=== PATIENT | male | born 1945 | race Caucasian/White ===

== ENCOUNTER 2023-03-12 12:47 | Day surgery (SDC) | payer MEDICARE ==
[~2023-03-12] VITALS: Ht 177.8 cm; Wt 83.3 kg
[~2023-03-12 12:47] MED LIST: ASPI81TA86 PO; ATOR80TA59 PO; CALC600T31 PO; CALC600T60 PO; ECOT81TA5 PO; ELIQ5TAB PO; GLUCTAB7 PO; LIPI80TA PO; NS 1,000 ML IV ONE; OMEP40CA5 PO; PERC5TAB12 PO; TYLE325T5 PO
[2023-03-12] MEDS ORDERED: LIDOCAINE 2% 100MG/5ML SDV (FOR ANES.) As Ordered ONE (14:15)
[2023-03-12] MEDS ORDERED: propofoL 200 MG/20 ML VIAL As Ordered ONE (14:15)
[2023-03-12 15:37] VITALS: BP 125/65; O2SAT 98
== END 2023-03-12 16:01 | disposition home or self-care (01) ==
LOC: M OPP 12:47
PROVIDERS: ATTEND Internal Medicine Gastroenterology
DX: K44.9 Diaphragmatic hernia without obstruction or gangrene (principal); K29.70 Gastritis, unspecified, without bleeding; K30 Functional dyspepsia; G47.33 Obstructive sleep apnea (adult) (pediatric); Z99.89 Dependence on other enabling machines and devices; Z79.01 Long term (current) use of anticoagulants; Z79.2 Long term (current) use of antibiotics; Z79.82 Long term (current) use of aspirin; Z79.899 Other long term (current) drug therapy